=== PATIENT | female | born 1945 | race Caucasian/White ===

== ENCOUNTER 2016-07-29 10:57 | Emergency (ER) | payer MEDICARE, OTHER ==
[~2016-07-29] VITALS: Ht 157.5 cm; Wt 77.5 kg
[2016-07-29 11:01] VITALS: BP 161/87; PULSE 56; RESP 16; TEMP 98.2; O2SAT 97
[2016-07-29] MEDS ORDERED: FISHCAP4 PO (11:15)
[2016-07-29] MEDS ORDERED: ASPI81TA11 PO (11:15)
[2016-07-29] MEDS ORDERED: ATOR20TA15 PO (11:15)
[2016-07-29] MEDS ORDERED: VITA100064 PO (11:15)
[2016-07-29] MEDS ORDERED: LISI10TA3 PO (11:15)
[2016-07-29] MEDS ORDERED: SODIUM CHLORIDE 0.9% FLUSH 5 ML FLUSH IVF PRN (11:45)
--- NOTE | 2016-07-29 11:49 | PD ---
HPI Chief Complaint: Dizziness Time Seen by Provider: 11:36 Travel History International Travel<30 days: No Contact w/Intl Traveler<30days: No Traveled to known affect area: No History of Present Illness HPI This patient complains of lightheadedness. Duration is 3 days. Symptoms wax and wane. No vertigo type rotational movement. She does not have headache or speech slurring or confusion or sensory loss or muscle weakness. Nothing really to suggest stroke. Denies fever or head injury. Symptoms severity is moderate. No alleviating factors. PFSH Past Medical History Hx Anticoagulant Therapy: Yes (81 MG ASA) Cardiovascular Problems: Yes (HTN) High Cholesterol: Yes Hypertension: Yes ?: Not Past Surgical History Other Surgery: Yes (SKIN CANCER) Social History Alcohol Use: No Tobacco Use: No Substance Use: No Allergies-Medications (Allergen,Severity, Reaction): Coded Allergies: No Known Allergies (Unverified , 07/29/16) Reported Meds & Prescriptions Reported Meds & Active Scripts Active Reported Atorvastatin (Atorvastatin Calcium) 20 Mg Tab 20 Mg PO HS Lisinopril 10 Mg Tab 10 Mg PO DAILY Aspirin EC (Aspirin) 81 Mg Tabdr 81 Mg PO DAILY Vitamin D (Cholecalciferol) 1,000 Unit Tab 1,000 Units PO DAILY Fish Oil + D3 (Fish Oil-Cholecalciferol) 1,200-1,000 Mg-Unit Cap 1 Cap PO DAILY Review of Systems General / Constitutional: No: Fever Eyes: No: Visual changes HENT: Positive: Lightheadedness, No: Headaches Cardiovascular: No: Chest Pain or Discomfort Respiratory: No: Shortness of Breath Gastrointestinal: No: Abdominal Pain Genitourinary: No: Dysuria Musculoskeletal: No: Pain Skin: No Rash Neurologic: No: Weakness Psychiatric: No: Depression Endocrine: No: Polydipsia Hematologic/Lymphatic: No: Easy Bruising Physical Exam Narrative GENERAL: Well-nourished, well-developed patient in no apparent distress. SKIN: Warm and dry. HEAD: Atraumatic. Normocephalic. EYES: Pupils equal and round. No scleral icterus. No injection or drainage. ENT: No nasal bleeding or discharge. Mucous membranes pink and moist. NECK: Trachea midline. No JVD. CARDIOVASCULAR: Regular rate and rhythm. No murmur appreciated. RESPIRATORY: No accessory muscle use. Clear to auscultation. Breath sounds equal bilaterally. GASTROINTESTINAL: Abdomen soft, non-tender, nondistended. Hepatic and splenic margins not palpable. MUSCULOSKELETAL: No obvious deformities. No clubbing. No cyanosis. No edema. NEUROLOGICAL: Awake and alert. No obvious cranial nerve deficits. Motor grossly within normal limits. Normal speech. PSYCHIATRIC: Appropriate mood and affect; insight and judgment normal. Data Data Last Documented VS Vital Signs Date Time Temp Pulse Resp B/P Pulse Ox O2 Delivery O2 Flow Rate FiO2 07/29/16 11:57 98 07/29/16 11:51 48 16 153/73 50 16 178/83 56 16 194/89 07/29/16 11:01 98.2 Orders Electrocardiogram (07/29/16 11:36) Basic Metabolic Panel (Bmp) (07/29/16 11:36) Complete Blood Count With Diff (07/29/16 11:36) Ct Brain W/O Iv Contrast(Rout) (07/29/16 11:36) Ecg Monitoring (07/29/16 11:36) Iv Access Insert/Monitor (07/29/16 11:36) Oximetry (07/29/16 11:36) Sodium Chloride 0.9% Flush (Ns Flush) (07/29/16 11:45) Orthostatic Vital Signs (07/29/16 11:36) Labs Laboratory Tests Test 07/29/16 11:50 White Blood Count 6.3 TH/MM3 Red Blood Count 4.50 MIL/MM3 Hemoglobin 12.8 GM/DL Hematocrit 37.8 % Mean Corpuscular Volume 84.0 FL Mean Corpuscular Hemoglobin 28.5 PG Mean Corpuscular Hemoglobin 34.0 % Concent Red Cell Distribution Width 12.5 % Platelet Count 194 TH/MM3 Mean Platelet Volume 7.0 FL Neutrophils (%) (Auto) 60.4 % Lymphocytes (%) (Auto) 26.1 % Monocytes (%) (Auto) 10.8 % Eosinophils (%) (Auto) 2.0 % Basophils (%) (Auto) 0.7 % Neutrophils # (Auto) 3.9 TH/MM3 Lymphocytes # (Auto) 1.6 TH/MM3 Monocytes # (Auto) 0.7 TH/MM3 Eosinophils # (Auto) 0.1 TH/MM3 Basophils # (Auto) 0.0 TH/MM3 CBC Comment DIFF FINAL Differential Comment Sodium Level 143 MEQ/L Potassium Level 4.6 MEQ/L Chloride Level 108 MEQ/L Carbon Dioxide Level 27.2 MEQ/L Anion Gap 8 MEQ/L Blood Urea Nitrogen 12 MG/DL Creatinine 1.10 MG/DL Estimat Glomerular Filtration 49 ML/MIN Rate Random Glucose 105 MG/DL Calcium Level 9.1 MG/DL [facility] Medical Decision Making Medical Screen Exam Complete: Yes Emergency Medical Condition: Yes Medical Record Reviewed: Yes Differential Diagnosis Vertigo, labyrinthitis, TIA, cardiac arrhythmia, orthostatic hypotension Narrative Course I have reviewed the patient's electronic medical record. Patient has normal exam other than some sinus bradycardia in the 50s but no hypotension Etiology of symptoms is unclear IV placed CBC is normal Metabolic profile is normal I reviewed her EKG which shows sinus bradycardia without ectopy Extended cardiac monitoring reveals sinus bradycardia without ectopy Brain CT is normal Orthostatics are normal Extensive workup was negative and I see no evidence of CVA Recommend primary care follow-up Diagnosis Primary Impression: Lightheadedness Additional Instructions: The patient was advised to follow up with their physician and return if they worsen. Med/Other Pt SpecificInfo: Other Disposition: 01 DISCHARGE HOME Condition: Stable Brown Garcia MD Jul 29, 2016 11:49
[2016-07-29 11:51] VITALS: BP_SYST 153; BP_SYST 178; BP_SYST 194; BP_DIAS 73; BP_DIAS 83; BP_DIAS 89; RESP 16
[2016-07-29 11:57] VITALS: O2SAT 98
[2016-07-29 11:57] LABS: AUTOMATED NEUTROPHIL # 3.9 TH/MM3 (1.8-7.7); BASOPHIL % 0.7 % (0.0-2.0); EOSINOPHIL # 0.1 TH/MM3 (0-0.4); HEMATOCRIT 37.8 % (35.0-46.0); HEMO FLAGS DIFF FINAL; LYMPH % 26.1 % (9.0-44.0); LYMPHOCYTE # 1.6 TH/MM3 (1.0-4.8); MEAN CORPUSCULAR HEMOGLOBIN 28.5 PG (27.0-34.0); MONO % 10.8 % (0.0-8.0); NEUT % 60.4 % (16.0-70.0); PLATELET COUNT 194 TH/MM3 (150-450); RED CELL DISTRIBUTION WIDTH 12.5 % (11.6-17.2); WHITE BLOOD COUNT 6.3 TH/MM3 (4.0-11.0)
[2016-07-29 12:07] LABS: POTASSIUM 4.6 MEQ/L (3.5-5.1)
[2016-07-29 12:09] LABS: BICARBONATE 27.2 MEQ/L (21.0-32.0)
--- NOTE | 2016-07-29 12:32 | RADHPO ---
EXAM DATE/TIME: 07/29/2016 12:05 [facility] COMPARISON: No previous studies available for comparison. INDICATIONS : Dizziness and vision changes since yesterday. RADIATION DOSE: 57.60 CTDIvol (mGy) MEDICAL HISTORY : Hypertension. SURGICAL HISTORY : None. ENCOUNTER: Initial ACUITY: 1 day PAIN SCALE: 0/10 LOCATION: Bilateral head TECHNIQUE: Multiple contiguous axial images were obtained of the head. Using automated exposure control and adj ustment of the mA and/or kV according to patient size, radiation dose was kept as low as reasonably a chievable to obtain optimal diagnostic quality images. FINDINGS: CEREBRUM: The ventricles are normal for age. No evidence of midline shift, mass lesion, hemorrhage or acute in farction. No extra-axial fluid collections are seen. POSTERIOR FOSSA: The cerebellum and brainstem are intact. The 4th ventricle is midline. The cerebellopontine angle i s unremarkable. EXTRACRANIAL: The visualized portion of the orbits is intact. SKULL: The calvaria is intact. No evidence of skull fracture. CONCLUSION: Normal examination. Jevon Robertson MD on July 29, 2016 at 12:30 Board Certified Radiologist. This report was verified electronically.
--- NOTE | 2016-07-30 13:30 | EKG ---
Date Performed: 07/29/2016 Time Performed: 11:48:50 PTAGE: 71 years EKG: Sinus bradycardia Poor R wave progression - probable normal variant Low QRS voltages in pre cordial leads Borderline ECG NO PREVIOUS TRACING DOCTOR: Helder Jacobsen Interpretating Date/Time 07/30/2016 13:28:00
== END 2016-07-29 13:09 | disposition home or self-care (01) ==
LOC: PHED 10:57
DX: R42 Dizziness and giddiness (principal); Z79.82 Long term (current) use of aspirin; I10 Essential (primary) hypertension; E78.00 Pure hypercholesterolemia, unspecified; R00.1 Bradycardia, unspecified
CPT/HCPCS: 70450; 80048; 85025; 93005

== ENCOUNTER 2017-02-05 13:13 | Emergency (ER) | payer MEDICARE, OTHER ==
[~2017-02-05] VITALS: Ht 157.5 cm; Wt 73.0 kg
[~2017-02-05 13:13] MED LIST: ASPI81TA11 PO; ATOR20TA15 PO; FISHCAP4 PO; LISI10TA3 PO; VITA100064 PO
[2017-02-05 13:20] VITALS: BP 176/81; PULSE 56; RESP 16; TEMP 98; O2SAT 97
--- NOTE | 2017-02-05 13:51 | PD ---
HPI Chief Complaint: Cardiac Complaint Time Seen by Provider: 13:43 Travel History International Travel<30 days: No Contact w/Intl Traveler<30days: No Traveled to known affect area: No History of Present Illness HPI The patient was seen and examined in the presence of the nurse. This patient has been having atypical chest sensations for the past 4 days. She describes a pins and needle sensation over her entire chest. It seems like she is describing paresthesia. It's on both right and left sides. There is no pain or pressure or heaviness or tightness. She reports that she had a normal nuclear stress test 3 or 4 months ago. She has no history of CAD. She is breathing well. Symptom severity is mild. No alleviating factors. She has an appointment With her drapery worker in 2 days. PFSH Past Medical History Hx Anticoagulant Therapy: Yes (81 MG ASA) Cardiovascular Problems: Yes (HTN) High Cholesterol: Yes Hypertension: Yes Past Surgical History Other Surgery: Yes (SKIN CANCER) Social History Alcohol Use: No Tobacco Use: No Substance Use: No Allergies-Medications (Allergen,Severity, Reaction): Coded Allergies: No Known Allergies (Unverified , 02/05/17) Reported Meds & Prescriptions Reported Meds & Active Scripts Active Reported Atorvastatin (Atorvastatin Calcium) 20 Mg Tab 20 Mg PO HS Lisinopril 10 Mg Tab 10 Mg PO DAILY Aspirin EC (Aspirin) 81 Mg Tabdr 81 Mg PO DAILY Vitamin D3 (Cholecalciferol) 1,000 Unit Tab 1,000 Units PO DAILY Fish Oil + D3 (Fish Oil-Cholecalciferol) 1,200-1,000 Mg-Unit Cap 1 Cap PO DAILY Review of Systems General / Constitutional: No: Fever Eyes: No: Visual changes HENT: No: Headaches Cardiovascular: Positive: Chest Pain or Discomfort Respiratory: No: Shortness of Breath Gastrointestinal: No: Abdominal Pain Genitourinary: No: Dysuria Musculoskeletal: No: Pain Skin: No Rash Neurologic: No: Weakness Psychiatric: No: Depression Endocrine: No: Polydipsia Hematologic/Lymphatic: No: Easy Bruising Physical Exam Narrative GENERAL: Well-nourished, well-developed patient in no apparent distress. SKIN: Focused skin assessment reveals no rash and nodules. Skin is Warm and dry. HEAD: Atraumatic. Normocephalic. EYES: Pupils equal and round. No scleral icterus. No injection or drainage. ENT: No nasal bleeding or discharge. Mucous membranes pink and moist. NECK: Trachea midline. No JVD. CARDIOVASCULAR: Regular rate and rhythm. No murmur appreciated. RESPIRATORY: No accessory muscle use. Clear to auscultation. Breath sounds equal bilaterally. GASTROINTESTINAL: Abdomen soft, non-tender, nondistended. Hepatic and splenic margins not palpable. MUSCULOSKELETAL: No obvious deformities. No clubbing. No cyanosis. No edema. NEUROLOGICAL: Awake and alert. No obvious cranial nerve deficits. Motor grossly within normal limits. Normal speech. PSYCHIATRIC: Appropriate mood and affect; insight and judgment normal. Data Data Last Documented VS Vital Signs Date Time Temp Pulse Resp B/P Pulse Ox O2 Delivery O2 Flow Rate FiO2 02/05/17 14:56 48 16 145/73 97 Room Air 02/05/17 13:20 98.0 Orders Electrocardiogram (02/05/17 13:48) Basic Metabolic Panel (Bmp) (02/05/17 13:48) Ckmb (Isoenzyme) Profile (02/05/17 13:48) Complete Blood Count With Diff (02/05/17 13:48) Prothrombin Time / Inr (Pt) (02/05/17 13:48) Act Partial Throm Time (Ptt) (02/05/17 13:48) Troponin I (02/05/17 13:48) Chest, Single Ap (02/05/17 13:48) Ecg Monitoring (02/05/17 13:48) Iv Access Insert/Monitor (02/05/17 13:48) Oximetry (02/05/17 13:48) Sodium Chloride 0.9% Flush (Ns Flush) (02/05/17 14:00) Labs Laboratory Tests Test 02/05/17 14:05 White Blood Count 6.1 TH/MM3 Red Blood Count 4.42 MIL/MM3 Hemoglobin 12.7 GM/DL Hematocrit 37.1 % Mean Corpuscular Volume 84.1 FL Mean Corpuscular Hemoglobin 28.8 PG Mean Corpuscular Hemoglobin 34.2 % Concent Red Cell Distribution Width 13.0 % Platelet Count 198 TH/MM3 Mean Platelet Volume 7.7 FL Neutrophils (%) (Auto) 59.4 % Lymphocytes (%) (Auto) 27.1 % Monocytes (%) (Auto) 9.7 % Eosinophils (%) (Auto) 2.1 % Basophils (%) (Auto) 1.7 % Neutrophils # (Auto) 3.6 TH/MM3 Lymphocytes # (Auto) 1.7 TH/MM3 Monocytes # (Auto) 0.6 TH/MM3 Eosinophils # (Auto) 0.1 TH/MM3 Basophils # (Auto) 0.1 TH/MM3 CBC Comment DIFF FINAL Differential Comment Prothrombin Time 10.4 SEC Prothromb Time International 0.9 RATIO Ratio Activated Partial 24.1 SEC Thromboplast Time Sodium Level 142 MEQ/L Potassium Level 3.8 MEQ/L Chloride Level 109 MEQ/L Carbon Dioxide Level 24.8 MEQ/L Anion Gap 8 MEQ/L Blood Urea Nitrogen 14 MG/DL Creatinine 1.10 MG/DL Estimat Glomerular Filtration 49 ML/MIN Rate Random Glucose 101 MG/DL Calcium Level 9.1 MG/DL Total Creatine Kinase 76 U/L Troponin I LESS THAN 0.02 NG/ML MDM Medical Decision Making Medical Screen Exam Complete: Yes Emergency Medical Condition: Yes Medical Record Reviewed: Yes Differential Diagnosis Differential diagnosis includes PR, angina, pericarditis, pleurisy, GERD, anxiety. Narrative Course I have reviewed the patient's electronic medical record. IV placed I reviewed the EKG which shows sinus rhythm without ST elevation I reviewed the chest x-ray is normal Extended cardiac monitoring shows sinus rhythm without ectopy CBC is normal Metabolic profile is normal CK is normal Troponin is normal Coagulation studies are normal Patient's workup here is negative. I don't think she is having an acute coronary event. She describes paresthesias across her entire chest, not consistent with acute coronary pain. Plus she had a recent normal stress test per her report. Also, she is seeing her drapery worker in 2 days. She is stable for outpatient follow-up. If her chest symptoms change or worsen she will return Diagnosis Primary Impression: Paresthesia Additional Impression: Chest discomfort Additional Instructions: The patient was advised to follow up with their physician and return if they worsen. Med/Other Pt SpecificInfo: Other Disposition: 01 DISCHARGE HOME Condition: Stable Brown Garcia MD Feb 05, 2017 13:51
[2017-02-05] MEDS ORDERED: SODIUM CHLORIDE 0.9% FLUSH 10 ML FLUSH IVF PRN (14:00)
[2017-02-05 14:08] VITALS: RESP 16; O2SAT 99
--- NOTE | 2017-02-05 14:17 | RADRPT ---
EXAM DATE/TIME: 02/05/2017 13:58 [facility] COMPARISON: No previous studies available for comparison. INDICATIONS : Tingling in left arm and chest. MEDICAL HISTORY : None. SURGICAL HISTORY : None. ENCOUNTER: Initial ACUITY: 4 - 6 days PAIN SCORE: 0/10 LOCATION: Left chest FINDINGS: A single view of the chest demonstrates the lungs to be symmetrically aerated without evidence of mas s, infiltrate or effusion. The cardiomediastinal contours are unremarkable. Osseous structures are intact. CONCLUSION: No acute disease. Mitchell Escobar MD on February 05, 2017 at 14:16 Board Certified Radiologist. This report was verified electronically.
[2017-02-05 14:18] LABS: AUTOMATED NEUTROPHIL # 3.6 TH/MM3 (1.8-7.7); BASOPHIL # 0.1 TH/MM3 (0-0.2); BASOPHIL % 1.7 % (0.0-2.0); EOSINOPHIL # 0.1 TH/MM3 (0-0.4); EOSINOPHIL % 2.1 % (0.0-4.0); HEMATOCRIT 37.1 % (35.0-46.0); HEMO FLAGS DIFF FINAL; LYMPH % 27.1 % (9.0-44.0); LYMPHOCYTE # 1.7 TH/MM3 (1.0-4.8); MEAN CELL VOLUME 84.1 FL (80.0-100.0); MEAN CORPUSCULAR HEMOGLOBIN 28.8 PG (27.0-34.0); MEAN CORPUSCULAR HGB CONC 34.2 % (32.0-36.0); MONO % 9.7 % (0.0-8.0); NEUT % 59.4 % (16.0-70.0); PLATELET COUNT 198 TH/MM3 (150-450); RED BLOOD COUNT 4.42 MIL/MM3 (4.00-5.30); WHITE BLOOD COUNT 6.1 TH/MM3 (4.0-11.0)
[2017-02-05 14:27] LABS: CHLORIDE 109 MEQ/L (98-107); POTASSIUM 3.8 MEQ/L (3.5-5.1); SODIUM (NA) 142 MEQ/L (136-145)
[2017-02-05 14:30] LABS: ANION GAP 8 MEQ/L (5-15); BICARBONATE 24.8 MEQ/L (21.0-32.0)
[2017-02-05 14:31] LABS: APTT (PATIENT) 24.1 SEC (24.3-30.1); BLOOD UREA NITROGEN 14 MG/DL (7-18); INTERNATIONAL NORMALIZED RATIO 0.9 RATIO; PROTHROMBIN TIME - PATIENT 10.4 SEC (9.8-11.6)
[2017-02-05 14:34] LABS: GLOMERULAR FILTRATION RATE 49 ML/MIN (>89)
[2017-02-05 14:45] LABS: CREATINE KINASE 76 U/L (26-192)
[2017-02-05 14:56] VITALS: BP 145/73; PULSE 48; RESP 16; O2SAT 97
--- NOTE | 2017-02-06 13:51 | EKG ---
Date Performed: 02/05/2017 Time Performed: 13:50:35 PTAGE: 71 years EKG: SINUS BRADYCARDIA MODERATE VOLTAGE CRITERIA FOR LVH, CONSIDER NORMAL VARIANT Compared to pr evious tracing QRS voltage has slightly increased BORDERLINE ECG PREVIOUS TRACING : 07/29/2016 11.48 DOCTOR: Andry Gandara Interpretating Date/Time 02/06/2017 13:49:48
== END 2017-02-05 15:59 | disposition home or self-care (01) ==
LOC: PHED 13:13
DX: R20.2 Paresthesia of skin (principal); R07.89 Other chest pain; I10 Essential (primary) hypertension; E78.00 Pure hypercholesterolemia, unspecified; Z79.82 Long term (current) use of aspirin; Z79.899 Other long term (current) drug therapy
CPT/HCPCS: 71010; 80048; 82550; 84484; 85025; 85610; 85730; 93005